=== PATIENT | female | born 1975 | race Two or more races ===

== ENCOUNTER 2018-12-22 09:30 | Outpatient (CLI) | payer OTHER | END 2018-12-22 09:41 | disposition home or self-care (01) | LOC: MAMO-SONO 09:30 | DX: Z12.31 Encounter for screening mammogram for malignant neoplasm of breast (principal) ==

== ENCOUNTER 2020-06-11 11:21 | Outpatient (CLI) | payer OTHER | END 2020-06-11 11:35 | disposition home or self-care (01) | LOC: MAMO-SONO 11:21 | DX: Z12.31 Encounter for screening mammogram for malignant neoplasm of breast (principal); R92.0 Mammographic microcalcification found on diagnostic imaging of breast ==

== ENCOUNTER 2021-08-06 11:44 | Outpatient (CLI) | payer OTHER | END 2021-08-06 11:55 | disposition home or self-care (01) | LOC: MAMO-SONO 11:44 | DX: Z12.31 Encounter for screening mammogram for malignant neoplasm of breast (principal) ==

== ENCOUNTER 2022-09-15 11:43 | Outpatient (CLI) | payer OTHER | END 2022-09-15 11:54 | disposition home or self-care (01) | LOC: MAMO-SONO 11:43 | DX: N60.89 Other benign mammary dysplasias of unspecified breast (principal); Z12.31 Encounter for screening mammogram for malignant neoplasm of breast ==

== ENCOUNTER 2023-10-21 11:23 | Outpatient (CLI) | payer OTHER | END 2023-10-21 11:33 | disposition home or self-care (01) | LOC: MAMO-SONO 11:23 → SONOGRAMA 11:23 → MAMO-SONO 11:33 → SONOGRAMA 11:33 | DX: N60.11 Diffuse cystic mastopathy of right breast (principal); N60.12 Diffuse cystic mastopathy of left breast; R92.8 Other abnormal and inconclusive findings on diagnostic imaging of breast ==

== ENCOUNTER 2024-12-26 12:16 | Outpatient (CLI) | payer OTHER | END 2024-12-26 12:25 | disposition home or self-care (01) | LOC: MAMO-SONO 12:16 | DX: R92.8 Other abnormal and inconclusive findings on diagnostic imaging of breast (principal) ==